=== PATIENT | male | born 1975 | race Caucasian/White ===

== ENCOUNTER 2017-10-24 08:52 | Emergency (ER) | payer OTHER ==
[~2017-10-24] VITALS: Ht 172.7 cm; Wt 86.2 kg
[~2017-10-24 08:52] MED LIST: DICY20TA3 PO; PROM25TA10 PO
[2017-10-24 09:05] VITALS: BP 126/71
[2017-10-24] MEDS ORDERED: IPRA15SP NS (10:03)
[2017-10-24] MEDS ORDERED: FEXO180T81 PO (10:03)
--- NOTE | 2017-10-24 10:04 | PHYS DOC ---
Past History Past Medical History: No Pertinent History Past Surgical History: No Surgical History Alcohol Use: None Drug Use: None Adult General Chief Complaint Chief Complaint: SKIN RASH/ABSCESS HPI HPI Patient is a 42 year old M who presents with red bumpy itchy rash mainly over his back has been present over the past 2-3 days. He describes a upper respiratory infection treated with Augmentin approximately 2 weeks ago. He feels that his symptoms improved but his nasal congestion has returned over the past 2-3 days. He had discontinued his antibiotic however he restarted it about 2 days ago due to the return of his nasal congestion. He has no other associated symptoms. He has no other exacerbating or alleviating factors. Review of Systems Review of Systems Constitutional: Denies fever or chills [] Eyes: Denies change in visual acuity, redness, or eye pain [] HENT: Denies nasal congestion or sore throat [] Respiratory: Denies cough or shortness of breath [] Cardiovascular: No additional information not addressed in HPI [] GI: Denies abdominal pain, nausea, vomiting, bloody stools or diarrhea [] : Denies dysuria or hematuria [] Musculoskeletal: Denies back pain or joint pain [] Integument: Negative except history of present illness Neurologic: Denies headache, focal weakness or sensory changes [] Endocrine: Denies polyuria or polydipsia [] All other systems were reviewed and found to be within normal limits, except as documented in this note. Family History Family History Noncontributory Current Medications Current Medications Current medications were reviewed Allergies Allergies Allergies Coded Allergies Type Severity Reaction Last Updated Verified No Known Drug Allergies 10/24/17 No Physical Exam Physical Exam Constitutional: Well developed, well nourished, no acute distress, non-toxic appearance. [] HENT: Normocephalic, atraumatic, mild nasal congestion with mild mucous noted bilaterally Eyes: EOMI, conjunctiva normal, no discharge. [] Neck: Normal range of motion, no tenderness, supple, no stridor. [] Cardiovascular:Heart rate regular rhythm, no murmur [] Lungs & Thorax: Bilateral breath sounds clear to auscultation [] Abdomen: Bowel sounds normal, soft, no tenderness, no masses, no pulsatile masses. [] Skin: Warm, dry, no erythema, scattered papular rash over the back with minimal papules noted on upper extremity and anterior abdomen Back: No tenderness, no CVA tenderness. [] Extremities: No tenderness, no cyanosis, no clubbing, ROM intact, no edema. [] Neurologic: Alert and oriented X 3, normal motor function, normal sensory function, no focal deficits noted. [] Psychologic: Affect normal, judgement normal, mood normal. [] Current Patient Data Vital Signs Vital Signs Date Time Temp Pulse Resp B/P (MAP) Pulse Ox O2 Delivery O2 Flow Rate FiO2 10/24/17 09:05 98.4 66 18 97 Room Air EKG EKG [] Radiology/Procedures Radiology/Procedures [] Course & Med Decision Making Course & Med Decision Making Pertinent Labs and Imaging studies reviewed. (See chart for details) [] Dragon Disclaimer Dragon Disclaimer This electronic medical record was generated, in whole or in part, using a voice recognition dictation system. Departure Departure: Impression: Primary Impression: Rash Disposition: HOME, SELF-CARE Condition: STABLE Referrals: PCP,UNKNOWN (PCP) Patient Instructions: Drug Rash, Upper Respiratory Infection, Adult Additional Instructions: Joe was seen in the emergency department for rash and nasal congestion. No emergency medical condition was found on history or physical exam. His respiratory symptoms were consistent with an upper respiratory infection for which she was advised to use nasal saline rinses regularly and was given a prescription for Atrovent nose spray to help with mucus. He was advised to use antihistamines and/or topical steroid cream for his itching. His rash may be related to a reaction, not allergy, to his antibiotic. He was advised follow up with his primary care doctor as needed for further management. Scripts Fexofenadine Hcl (IMAN ALLERGY) 180 Mg Tablet 1 TAB PO DAILY, #14 TAB 2 Refills Prov: CHLOE NGUYEN MD 10/24/17 Ipratropium [place] (IPRATROPIUM BROMIDE) 15 Ml [place] 15 ML NS TID for 7 Days, SPRAY Prov: CHLOE NGUYEN MD 10/24/17 CHLOE NGUYEN MD Oct 24, 2017 10:04
== END 2017-10-24 10:07 | disposition home or self-care (01) ==
LOC: ER 08:52
DX: R21 Rash and other nonspecific skin eruption (principal); L29.9 Pruritus, unspecified
CPT/HCPCS: 99283